=== PATIENT | female | born 1930 | race Caucasian/White ===

== ENCOUNTER → 2017-04-05 | Outpatient (CLI) | payer OTHER ==
[~2017-04-05] MED LIST: ACTONEL150 MG PO; ADULT LOW DOSE81 MG PO; BENICAR20 MG PO; CALCIUM 600 +1 EAC1 PO; FISHOIL OR; MELOXICAM7.5 MG PO; MIACALCIN INH; NEURONTIN 300300 M1 PO; NORCO 5-325 TA1 EACH PO; RED YEAST RICE600 MG PO; ZOCOR 20 MG TAB20 M1 PO
== END ==
LOC: RAD 01:30
DX: Z12.31 Encounter for screening mammogram for malignant neoplasm of breast (principal)

== ENCOUNTER → 2017-08-04 | Outpatient (CLI) | payer OTHER | LOC: NUC 13:14 | DX: M81.0 Age-related osteoporosis without current pathological fracture (principal) ==

== ENCOUNTER → 2017-09-13 | Outpatient (CLI) | payer OTHER | LOC: RAD 11:26 | DX: M79.632 Pain in left forearm (principal); M81.0 Age-related osteoporosis without current pathological fracture ==

== ENCOUNTER → 2017-09-21 | Outpatient (CLI) | payer OTHER | LOC: MRI 08:10 | DX: G45.9 Transient cerebral ischemic attack, unspecified (principal); R41.3 Other amnesia; R42 Dizziness and giddiness ==

== ENCOUNTER → 2017-10-20 | Outpatient (CLI) | payer OTHER | LOC: ULTRA 15:33 | DX: I70.8 Atherosclerosis of other arteries (principal); R41.3 Other amnesia; R55 Syncope and collapse ==

== ENCOUNTER → 2018-04-07 | Outpatient (CLI) | payer OTHER | LOC: RAD 01:17 | DX: Z12.31 Encounter for screening mammogram for malignant neoplasm of breast (principal) ==